=== PATIENT | male | born 1965 | race Caucasian/White ===

== ENCOUNTER 2017-03-31 20:07 | Emergency (ER) | payer BC, OTHER ==
[2017-03-31 20:18] VITALS: BP 147/81
--- NOTE | 2017-03-31 20:47 | EDM.PDOC ---
ED HPI GENERAL MEDICAL PROBLEM - General Chief Complaint: ENT Problem Stated Complaint: TOOTH PAIN Time Seen by Provider: 03/31/17 20:22 Source of Information: Reports: Patient, RN Notes Reviewed - History of Present Illness INITIAL COMMENTS - FREE TEXT/NARRATIVE: 51-year-old male chipped a left upper premolar a few days ago. He is been having quite severe pain at the area of dental fracture. He started with some swelling of the left face last evening and that has become much worse today. No fever chills with this. No prior problems with that tooth. He is not diabetic Tooth/Teeth Pain Score (Numeric/FACES): 10 - Related Data Allergies Allergy/AdvReac Type Severity Reaction Status Date / Time No Known Allergies Allergy Verified 03/31/17 20:14 Home Meds: Home Meds Testosterone. 03/31/17 [History] Past Medical History - Past Health History Medical/Surgical History: Denies Medical/Surgical History Social & Family History - Tobacco Use Smoking Status *Q: Light Tobacco Smoker Years of Tobacco use: 35 Packs/Tins Daily: 0.1 - Recreational Drug Use Recreational Drug Use: No ED ROS ENT - Review of Systems Review Of Systems: See Below Constitutional: Denies: Fever, Chills HEENT: Reports: Dental Pain, Other Respiratory: Denies: Shortness of Breath (Left facial swelling) Cardiovascular: Denies: Chest Pain GI/Abdominal: Denies: Abdominal Pain, Nausea, Vomiting Musculoskeletal: Reports: No Symptoms Skin: Reports: No Symptoms Neurological: Reports: No Symptoms ED EXAM, ENT - Physical Exam Exam: See Below General Appearance: Alert, Moderate Distress Eye Exam: Bilateral Eye: PERRL Nose: Normal Inspection Mouth/Throat: Dental Tenderness (Left upper premolar), Other (No visible gum swelling or drainage at this time) Head: Facial Swelling (He does have mild swelling of the left face), Facial Tenderness Respiratory/Chest: No Respiratory Distress, Lungs Clear Cardiovascular: Regular Rate, Rhythm Extremities: Normal Inspection, Normal Range of Motion Neurological: Alert, Oriented, No Motor/Sensory Deficits Skin: Warm, Dry, Normal Color Course - Vital Signs Last Recorded V/S: Last Vital Signs Temp 98.0 F 03/31/17 20:15 Pulse 92 03/31/17 20:15 Resp 16 03/31/17 20:15 BP 147/81 H 03/31/17 20:15 Pulse Ox 95 03/31/17 20:15 - Re-Assessments/Exams Free Text/Narrative Re-Assessment/Exam: 03/31/17 20:50 Within stomach and have prescribed clindamycin 300 mg, 40 tabs, 1 4 times a day , Naprosyn 30 tabs, 1 twice a day, hydrocodone 20 tabs 1-2 every 4-6 hours when necessary severe pain Departure - Departure Time of Disposition: 20:45 Disposition: Home, Self-Care 01 Condition: Fair Clinical Impression: Pain, dental - Discharge Information Referrals: PCP,None [Primary Care Provider] - Forms: ED Department Discharge Additional Instructions: Clindamycin 300 mg 4 times daily for at least 1 week or until infection has completely resolved, Naprosyn 500 mg twice daily for pain and inflammation, take that with food so as not to upset her stomach. Tylenol in addition up to 3 times daily or hydrocodone if needed for severe pain. Do not take Tylenol and hydrocodone at the same time. Do not work or drive when taking hydrocodone. Follow-up with dentist as soon as possible. Return to ED as needed
== END 2017-03-31 20:54 | disposition home or self-care (01) ==
LOC: JD.ED 20:07
DX: K08.89 Other specified disorders of teeth and supporting structures (principal); F17.210 Nicotine dependence, cigarettes, uncomplicated
CPT/HCPCS: 99283